=== PATIENT | female | born 1995 | race Hispanic/Latino ===

== ENCOUNTER 2019-08-24 06:35 | Emergency (ER) | payer SELFPAY ==
[2019-08-24] MEDS ORDERED: NA CHLORIDE 0.9% 1,000 ML ONE (07:20)
[2019-08-24] MEDS ORDERED: PROMETHAZINE INJ 25 MG/ML AMP ONE (07:20)
[2019-08-24 07:34] LABS: Absolute Lymphocytes (CBC) 1.7 K/uL (0.7-4.9); Basophils % 0.5 % (0-1.3); Hematocrit 38.6 % (36.0-45.0); MPV 9.1 fL (7.6-11.3); RBC Red Blood Cell Count 4.14 M/uL (3.86-4.86)
[2019-08-24 07:48] LABS: Urine Bacteria 20-50 /HPF (<20); Urine Culture Reflex Order REFLEXED; Urine Mucus MOD /HPF (NONE SEEN); Urine RBC <5 /HPF (NONE SEEN)
[2019-08-24 07:49] LABS: Urine Blood NEGATIVE (NEG); Urine Glucose NEGATIVE (NEG); Urine Protein TRACE (NEG); Urine Specific Gravity 1.025 (1.005-1.030); Urine pH 6.5 (5.0-7.0)
[2019-08-24 08:34] LABS: BUN Blood Urea Nitrogen 12 mg/dL (7-18); Bicarbonate 28 mmol/L (21-32); Glucose Level 86 mg/dL (74-106); HCG, Quantitative 118740 mIU/mL (1-3); Potassium 3.8 mmol/L (3.5-5.1); Sodium Level 137 mmol/L (136-145)
--- NOTE | 2019-08-24 09:34 | ER ---
Nurse's Notes [facility] Name: Ruth Ann Daniels Age: 24 yrs Sex: Female : 1995 Arrival Date: 08/24/2019 Time: 06:39 Bed 18 Private MD: Diagnosis: Vomiting of , unspecified;Less than 8 weeks gestation of ;Urinary tract infection, site not specified Presentation: 08/24 06:46 Presenting complaint: Patient states: "I found out I was about a week ago j using a home test and I have been having problems with nausea and throwing up ever since as well as bad back pain. I haven't seen an OB doctor yet.". Transition of care: patient was not received from another setting of care. Onset of symptoms was August 24, 2019. Risk Assessment: Do you want to hurt yourself or someone else? Patient reports no desire to harm self or others. Initial Sepsis Screen: Does the patient meet any 2 criteria? No. Patient's initial sepsis screen is negative. Does the patient have a suspected source of infection? No. Patient's initial sepsis screen is negative. Care prior to arrival: None. 06:46 Method Of Arrival: Ambulatory jd3 06:46 Acuity: JUSTIN 3 jd3 Triage Assessment: 07:00 General: Appears in no apparent distress. comfortable, Behavior is cooperative, bp appropriate for age, anxious. Pain: Complains of pain in low back area. EENT: No deficits noted. Neuro: No deficits noted. Cardiovascular: No deficits noted. Respiratory: No deficits noted. GI: Abdomen is non-distended, Reports nausea. : No signs and/or symptoms were reported regarding the genitourinary system. Derm: No deficits noted. Musculoskeletal: No deficits noted. 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 - Coronavirus screen:: The patient has NOT traveled to [place], [place], or [place] in the past 14 days. The patient has NOT had contact with known/suspected case of Coronavirus? Proceed with normal triage procedures. - Social history:: Smoking status: Patient denies any tobacco usage or history of. - Ebola Screening: : Patient negative for fever greater than or equal to 101.5 degrees Fahrenheit, and additional compatible Ebola Virus Disease symptoms. Screenin:51 Abuse screen: Denies threats or abuse. Nutritional screening: No deficits noted. jd3 Tuberculosis screening: No symptoms or risk factors identified. Fall Risk Ambulatory Aid- None/Bed Rest/Nurse Assist (0 pts). Gait- Normal/Bed Rest/Wheelchair (0 pts) Mental Status- Oriented to own ability (0 pts). Total Goddard Fall Scale indicates No Risk (0-24 pts). Assessment: 06:50 General: Appears in no apparent distress. uncomfortable, Behavior is calm, cooperative, jd3 appropriate for age. Pain: Complains of pain in low back area Quality of pain is described as aching. Neuro: Level of Consciousness is awake, alert, obeys commands, Oriented to person, place, time, situation. Cardiovascular: Denies chest pain, Capillary refill < 3 seconds Patient's skin is warm and dry. Respiratory: Airway is patent Respiratory effort is even, unlabored, Respiratory pattern is regular, symmetrical, Denies cough, shortness of breath. GI: Abdomen is flat, non-distended, Abd is soft and non tender X 4 quads. Reports nausea, vomiting, Patient currently denies constipation, diarrhea. : No signs and/or symptoms were reported regarding the genitourinary system. EENT: No signs and/or symptoms were reported regarding the EENT system. Derm: Skin is intact, Skin is dry, Skin is normal, Skin temperature is warm. Musculoskeletal: Circulation, motion, and sensation intact. Range of motion: intact in all extremities. 07:04 Reassessment: RECD REPORT FROM [facility]. 24YO HF P/W +UPT, NAUSEA AND LUMBAR PAIN. bp PT IS . NO VOMITING SINCE ARRIVAL TO ER. 07:32 Reassessment: PT NOW NPO, IVF INFUSING. LAB RESULTS PENDING. bp 08:40 Reassessment: IVF INFUSING, RESULTS PENDING. NO FURTHER VOMITING AT THIS TIME. bp 09:08 Reassessment: U/S AT B/S. bp 09:45 Reassessment: PT D/C HOME AMBULATORY, DX WITH VOMITING OF AND UTI. bp Vital Signs: 06:49 BP 129 / 81; Pulse 97; Resp 17 S; Temp 98.3(O); Pulse Ox 100% on R/A; Weight 48.99 kg jd3 (R); Height 4 ft. 11 in. (149.86 cm) (R); Pain 5/10; 07:32 BP 117 / 66; Pulse 85; Resp 16; Pulse Ox 100% ; bp 08:40 BP 104 / 68; Pulse 75; Resp 16; Pulse Ox 100% ; bp 09:44 BP 104 / 76; Pulse 78; Resp 16; Pulse Ox 100% ; bp 06:49 Body Mass Index 21.81 (48.99 kg, 149.86 cm) jd3 ED Course: 06:39 Patient arrived in ED. es 06:45 Tonya Sanchez [facility]C [facility] kb 06:45 Bernardino Salas MD is Attending Physician. kb 06:48 Triage completed. jd3 06:49 Arm band placed on. jd3 06:51 Patient has correct armband on for positive identification. Placed in gown. Bed in low jd3 position. Call light in reach. Side rails up X 1. 07:02 Helio Jarvis, RN is Primary Nurse. bp 07:15 Inserted saline lock: 22 gauge in right antecubital area, using aseptic technique. bp Blood collected. 09:37 Ultrasound completed. Patient tolerated well. Notified SET DECORATOR/PA . sg3 09:45 No provider procedures requiring assistance completed. IV discontinued, intact, bp bleeding controlled, No redness/swelling at site. Pressure dressing applied. 09:46 US Transvaginal Ob In Process Unspecified. EDMS Administered Medications: 07:15 Drug: NS 0.9% 1000 ml Route: IV; Rate: 1000 ml; Site: right antecubital; bp 09:43 Follow up: IV Status: Completed infusion; IV Intake: 1000ml bp 07:15 Drug: Phenergan 6.25 mg Route: IVP; Site: right antecubital; bp 09:43 Follow up: Response: Nausea is decreased bp 09:40 Drug: Macrobid 100 mg Route: PO; bp 09:44 Follow up: Response: No adverse reaction bp Intake: 09:43 IV: 1000ml; Total: 1000ml. bp Outcome: 09:32 Discharge ordered by MD. sahu 09:45 Discharged to home ambulatory. bp 09:45 Condition: stable 09:45 Discharge instructions given to patient, Instructed on discharge instructions, follow up and referral plans. medication usage, Demonstrated understanding of instructions, follow-up care, medications, Prescriptions given X 2. 09:49 Patient left the ED. bp Signatures: Dispatcher [employer] EDTonya Miller, [employer]ING [employer]-C D[employer]ING [employer]-Nataly Segura Jonathon RN RN jd3 Helio Jarvis RN RN bp Marcie Goldman sg3
--- NOTE | 2019-08-24 09:34 | EDPHYS ---
Physician Documentation [facility] Name: Ruth Ann Daniels Age: 24 yrs Sex: Female : 1995 Arrival Date: 08/24/2019 Time: 06:39 Bed 18 Private MD: ED Physician Bernardino Salas HPI: 08/24 07:11 This 24 yrs old Female presents to ER via Ambulatory with complaints of kb Vomiting, 4-6 WKS PREG. 07:12 The patient presents to the emergency department with nausea and vomiting, that started kb 7 day(s) ago. course: care: none, Leakage of Fluid: none appreciated, Ultrasound: the patient has not had an ultrasound, Risk/complications: no obvious risks or complications are appreciated. Previous pregnancies: in previous pregnancies patient has had. Associated signs and symptoms: Pertinent positives: vomiting. The patient has not experienced similar symptoms in the past. The patient has not recently seen a physician. Pt reports she had a positive test a week ago and has had nausea and vomiting since then. Also reports intermittent pain to middle of her back that started at the same time. . 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 - Coronavirus screen:: The patient has NOT traveled to [place], [place], or [place] in the past 14 days. The patient has NOT had contact with known/suspected case of Coronavirus? Proceed with normal triage procedures. - Social history:: Smoking status: Patient denies any tobacco usage or history of. - Ebola Screening: : Patient negative for fever greater than or equal to 101.5 degrees Fahrenheit, and additional compatible Ebola Virus Disease symptoms. ROS: 07:12 Constitutional: Negative for fever, chills, and weight loss, ENT: Negative for injury, kb pain, and discharge, Neck: Negative for injury, pain, and swelling, Cardiovascular: Negative for chest pain, palpitations, and edema, Respiratory: Negative for shortness of breath, cough, wheezing, and pleuritic chest pain, : Negative for injury, bleeding, discharge, and swelling, MS/Extremity: Negative for injury and deformity, Skin: Negative for injury, rash, and discoloration, Neuro: Negative for headache, weakness, numbness, tingling, and seizure. 07:12 Abdomen/GI: Positive for nausea and vomiting. 07:12 Back: Positive for pain at rest, of the mid back area. Exam: 07:12 Constitutional: This is a well developed, well nourished patient who is awake, alert, kb and in no acute distress. Head/Face: Normocephalic, atraumatic. Neck: Trachea midline, no thyromegaly or masses palpated, and no cervical lymphadenopathy. Supple, full range of motion without nuchal rigidity, or vertebral point tenderness. No Meningismus. Chest/axilla: Normal chest wall appearance and motion. Nontender with no deformity. No lesions are appreciated. Cardiovascular: Regular rate and rhythm with a normal S1 and S2. No gallops, murmurs, or rubs. Normal PMI, no JVD. No pulse deficits. Respiratory: Lungs have equal breath sounds bilaterally, clear to auscultation and percussion. No rales, rhonchi or wheezes noted. No increased work of breathing, no retractions or nasal flaring. Abdomen/GI: Soft, non-tender, with normal bowel sounds. No distension or tympany. No guarding or rebound. No evidence of tenderness throughout. Back: No spinal tenderness. No costovertebral tenderness. Full range of motion. Skin: Warm, dry with normal turgor. Normal color with no rashes, no lesions, and no evidence of cellulitis. MS/ Extremity: Pulses equal, no cyanosis. Neurovascular intact. Full, normal range of motion. Neuro: Awake and alert, GCS 15, oriented to person, place, time, and situation. Cranial nerves II-XII grossly intact. Motor strength 5/5 in all extremities. Sensory grossly intact. Cerebellar exam normal. Normal gait. Vital Signs: 06:49 BP 129 / 81; Pulse 97; Resp 17 S; Temp 98.3(O); Pulse Ox 100% on R/A; Weight 48.99 kg jd3 (R); Height 4 ft. 11 in. (149.86 cm) (R); Pain 5/10; 07:32 BP 117 / 66; Pulse 85; Resp 16; Pulse Ox 100% ; bp 08:40 BP 104 / 68; Pulse 75; Resp 16; Pulse Ox 100% ; bp 09:44 BP 104 / 76; Pulse 78; Resp 16; Pulse Ox 100% ; bp 06:49 Body Mass Index 21.81 (48.99 kg, 149.86 cm) jd3 MDM: 06:45 Patient medically screened. kb 07:15 Data reviewed: vital signs, nurses notes. Data interpreted: Pulse oximetry: on room air kb is 100 %. Interpretation: normal. 09:32 Counseling: I had a detailed discussion with the patient and/or guardian regarding: the kb historical points, exam findings, and any diagnostic results supporting the discharge/admit diagnosis, lab results, radiology results, the need for outpatient follow up, an OB/Gyne specialist, to return to the emergency department if symptoms worsen or persist or if there are any questions or concerns that arise at home. 08/24 07:07 Order name: Quantitative Hcg; Complete Time: 08:35 kb 08/24 07:07 Order name: Abo/rh Typing; Complete Time: 08:35 kb 08/24 07:07 Order name: Basic Metabolic Panel; Complete Time: 08:35 kb 08/24 07:07 Order name: CBC with Diff; Complete Time: 07:39 kb 08/24 07:07 Order name: Urine Microscopic Only; Complete Time: 07:51 kb 08/24 07:43 Order name: Urine Dipstick--Ancillary (enter results); Complete Time: 07:51 eb 08/24 06:52 Order name: Urine Dipstick-Ancillary (obtain specimen); Complete Time: 07:06 kb 08/24 06:52 Order name: Urine Test (obtain specimen); Complete Time: 07:06 kb 08/24 07:43 Order name: Urine --Ancillary (enter results); Complete Time: 07:51 eb 08/24 07:50 Order name: Urine Culture EDMS 08/24 08:35 Order name: US Transvaginal Ob kb 08/24 07:07 Order name: IV Saline Lock; Complete Time: 07:31 kb 08/24 07:07 Order name: Labs collected and sent; Complete Time: 07:31 kb 08/24 07:07 Order name: NPO; Complete Time: 07:31 kb 08/24 09:32 Order name: PO challenge; Complete Time: 09:44 kb Administered Medications: 07:15 Drug: NS 0.9% 1000 ml Route: IV; Rate: 1000 ml; Site: right antecubital; bp 09:43 Follow up: IV Status: Completed infusion; IV Intake: 1000ml bp 07:15 Drug: Phenergan 6.25 mg Route: IVP; Site: right antecubital; bp 09:43 Follow up: Response: Nausea is decreased bp 09:40 Drug: Macrobid 100 mg Route: PO; bp 09:44 Follow up: Response: No adverse reaction bp Disposition: 08/25 07:35 Co-signature as Attending Physician, Bernardino Salas MD I agree with the assessment and tw4 plan of care. Disposition: 08/24/19 09:32 Discharged to Home. Impression: Vomiting of , unspecified, Less than 8 weeks gestation of , Urinary tract infection, site not specified. - Condition is Stable. - Discharge Instructions: Morning Sickness, [id number], First Trimester of , [id number], and Urinary Tract Infection. - Prescriptions for Diclegis 10- 10 mg Oral tablet,delayed release (DR/EC) - take 1 tablet by ORAL route once daily As needed; 10 tablet. Macrobid 100 mg Oral Capsule - take 1 capsule by ORAL route every 12 hours for 5 days; 10 capsule. - Medication Reconciliation Form, Thank You Letter, Antibiotic Education, Prescription Opioid Use form. - Follow up: Emergency Department; When: As needed; Reason: Worsening of condition. Follow up: Private Physician; When: 2 - 3 days; Reason: Recheck today's complaints, Continuance of care, Re-evaluation by your physician. Signatures: Dispatcher [employer] Tonya Alcala, LEANDER BOONE-Tyler Ordonez RN RN Helio Rey RN RN Bernardino De Santiago MD MD tw4 Corrections: (The following items were deleted from the chart) 08/24 09:33 09:32 08/24/2019 09:32 Discharged to Home. Impression: Vomiting of , kb unspecified; Less than 8 weeks gestation of . Condition is Stable. Forms are Medication Reconciliation Form, Thank You Letter, Antibiotic Education, Prescription Opioid Use. Follow up: Emergency Department; When: As needed; Reason: Worsening of condition. Follow up: Private Physician; When: 2 - 3 days; Reason: Recheck today's complaints, Continuance of care, Re-evaluation by your physician. adelina 09:49 09:33 08/24/2019 09:32 Discharged to Home. Impression: Vomiting of , bp unspecified; Less than 8 weeks gestation of ; Urinary tract infection, site not specified. Condition is Stable. Forms are Medication Reconciliation Form, Thank You Letter, Antibiotic Education, Prescription Opioid Use. Follow up: Emergency Department; When: As needed; Reason: Worsening of condition. Follow up: Private Physician; When: 2 - 3 days; Reason: Recheck today's complaints, Continuance of care, Re-evaluation by your physician. kb
[2019-08-24] MEDS ORDERED: NITROFURAN MACRO 100 MG CAP PO ONE (09:41)
[2019-08-24 10:26] VITALS: O2SAT 100
[2019-08-24 10:30] VITALS: BP 104/76
[2019-08-24 10:39] VITALS: TEMP 100.7
--- NOTE | 2019-08-24 11:11 | RAD REPORT ---
EXAM DESCRIPTION: US - Transvaginal OB - 08/24/2019 9:42 am CLINICAL HISTORY: ABD CRAMPING, COMPARISON: No comparisons FINDINGS: A single gestational sac is seen within the uterus. The shape of the sac is within normal limits for gestational age. Within the sac is a single pole with crown-rump length of 1.1 cm, c orrelating to estimated gestational age of 7 weeks 2 day. Estimated date of delivery is 04/09/2020. Heart rate is 153 BPM. The placenta is not yet developed due to early gestational age. The maternal adnexa and ovaries are within normal limits. Normal Doppler blood flow was demonstrated to both ovaries. IMPRESSION: Single live early intrauterine gestation with estimated gestational age of 7 weeks 2 day s, SANDRO 04/09/2020. No unusual or unexpected finding.
== END 2019-08-24 09:49 | disposition home or self-care (01) ==
LOC: ER 06:35
DX: O23.41 Unspecified infection of urinary tract in pregnancy, first trimester (principal); O21.8 Other vomiting complicating pregnancy
CPT/HCPCS: 36415; 76817; 80048; 81003; 81015; 81025; 84702; 85025; 86900; 86901; 87086; 87088; 96361; 96374; 99284; J2550; J7030